=== PATIENT | male | born 1965 | race Caucasian/White ===

== ENCOUNTER 2022-03-01 08:53 | Outpatient (REF) | payer BC, SELFPAY | END 2022-03-01 08:54 | disposition home or self-care (01) | LOC: HO.BBR 08:53 | PROVIDERS: Visit Provider Acupuncturist | DX: Z13.89 Encounter for screening for other disorder (principal) ==

== ENCOUNTER 2022-04-13 11:01 | Outpatient (REF) | payer BC, SELFPAY | END 2022-04-13 11:02 | disposition home or self-care (01) | LOC: HO.BBR 11:01 | PROVIDERS: Visit Provider Acupuncturist | DX: Z13.89 Encounter for screening for other disorder (principal) ==

== ENCOUNTER 2022-04-21 10:01 | Outpatient (REF) | payer BC, SELFPAY ==
[2022-04-21 13:02] LABS: Ferritin 300 ng/mL (20-250)
== END 2022-04-21 10:02 | disposition home or self-care (01) ==
LOC: HO.BBR 10:01
PROVIDERS: Visit Provider Acupuncturist
DX: E83.110 Hereditary hemochromatosis (principal)
CPT/HCPCS: 36415; 82728

== ENCOUNTER 2022-05-11 08:56 | Outpatient (REF) | payer BC, SELFPAY | END 2022-05-11 08:57 | disposition home or self-care (01) | LOC: HO.BBR 08:56 | PROVIDERS: Visit Provider Acupuncturist | DX: Z13.89 Encounter for screening for other disorder (principal) ==

== ENCOUNTER 2022-05-19 09:03 | Outpatient (REF) | payer BC, SELFPAY | END 2022-05-19 09:04 | disposition home or self-care (01) | LOC: HO.BBR 09:03 | PROVIDERS: Visit Provider Acupuncturist | DX: Z13.89 Encounter for screening for other disorder (principal) ==

== ENCOUNTER 2022-07-28 09:52 | Outpatient (REF) | payer BC, SELFPAY ==
[2022-07-28 11:47] LABS: Ferritin 225 ng/mL (20-250)
== END 2022-07-28 09:53 | disposition home or self-care (01) ==
LOC: HO.BBR 09:52
PROVIDERS: Visit Provider Acupuncturist
DX: E83.110 Hereditary hemochromatosis (principal)
CPT/HCPCS: 36415; 82728

== ENCOUNTER 2022-09-15 09:58 | Outpatient (REF) | payer BC, SELFPAY | END 2022-09-15 09:59 | disposition home or self-care (01) | LOC: HO.BBR 09:58 | PROVIDERS: Visit Provider Acupuncturist | DX: Z13.89 Encounter for screening for other disorder (principal) ==

== ENCOUNTER 2022-09-22 10:04 | Outpatient (REF) | payer BC, SELFPAY | END 2022-09-22 10:05 | disposition home or self-care (01) | LOC: HO.BBR 10:04 | PROVIDERS: Visit Provider Acupuncturist | DX: Z13.89 Encounter for screening for other disorder (principal) ==

== ENCOUNTER 2022-10-05 10:55 | Outpatient (REF) | payer BC, SELFPAY ==
[2022-10-05 13:32] LABS: Ferritin 48 ng/mL (20-250)
== END 2022-10-05 10:56 | disposition home or self-care (01) ==
LOC: HO.BBR 10:55
PROVIDERS: Visit Provider Acupuncturist
DX: E83.110 Hereditary hemochromatosis (principal)
CPT/HCPCS: 36415; 82728

== ENCOUNTER 2023-01-05 09:42 | Outpatient (REF) | payer BC, SELFPAY ==
[2023-01-05 12:36] LABS: Ferritin 49 ng/mL (20-250)
== END 2023-01-05 09:43 | disposition home or self-care (01) ==
LOC: HO.BBR 09:42
PROVIDERS: Visit Provider Acupuncturist
DX: E83.110 Hereditary hemochromatosis (principal)
CPT/HCPCS: 36415; 82728